=== PATIENT | female | born 1945 | race Hispanic/Latino ===

== ENCOUNTER 2018-04-22 14:54 | Emergency (ER) | payer MEDICARE ==
[2018-04-22 15:10] VITALS: RESP 18; TEMP 98; BMI 23.8
--- NOTE | 2018-04-22 15:21 | ED PDOC ---
HPI: Psych/Substance Abuse Time Seen by Provider: 04/22/18 15:05 Chief Complaint (Nursing): Lower Extremity Problem/Injury Chief Complaint (Provider): aggressive behavior History Per: Patient, EMS History/Exam Limitations: no limitations Onset/Duration Of Symptoms: Days (yesterday) Additional Complaint(s): Pt. is homeless and went to her daughter's house for Thanksgiving. Her daughter called [facility] crisis as pt. was aggressive. Pt. denies being aggressive and states no etoh or drugs. No pain, weakness, headaches, suicidal or homicidal ideation, weakness. Not taking any meds. Past Medical History Reviewed: Nursing Documentation, Vital Signs Vital Signs: Last Vital Signs Temp 98.0 F 04/22/18 15:05 Pulse 98 H 04/22/18 15:05 Resp 18 04/22/18 15:05 BP 172/92 H 04/22/18 15:05 Pulse Ox 99 04/22/18 15:05 - Medical History PMH: No Chronic Diseases - Surgical History Surgical History: No Surg Hx - Family History Family History: States: Unknown Family Hx - Allergies Allergies/Adverse Reactions: Allergies Allergy/AdvReac Type Severity Reaction Status Date / Time No Known Allergies Allergy Verified 04/22/18 15:05 Review of Systems ROS Statement: Except As Marked, All Systems Reviewed And Found Negative Physical Exam - Reviewed Nursing Documentation Reviewed: Yes Vital Signs Reviewed: Yes - Physical Exam Appears: Positive for: Non-toxic, No Acute Distress Head Exam: Positive for: ATRAUMATIC, NORMAL INSPECTION, NORMOCEPHALIC Skin: Positive for: Normal Color, Warm, DRY Eye Exam: Positive for: EOMI, Normal appearance, PERRL ENT: Positive for: Normal ENT Inspection Neck: Positive for: Normal, Painless ROM Cardiovascular/Chest: Positive for: Regular Rate, Rhythm Respiratory: Positive for: CNT, Normal Breath Sounds Gastrointestinal/Abdominal: Positive for: Normal Exam, Soft. Negative for: Tenderness Back: Positive for: Normal Inspection. Negative for: L CVA Tenderness, R CVA Tenderness Extremity: Positive for: Tenderness (mild), Pedal Edema (b/l with venouse stasis; on going for per pt. and got rx for antibiotics) Neurologic/Psych: Positive for: Alert, Oriented - ECG O2 Sat by Pulse Oximetry: 99 Pulse Ox Interpretation: Normal - Progress ED Course And Treament: 1624: Psych saw pt. Does not meet criteria for admit. Fu outpt. AAOx3. Disposition - Clinical Impression Clinical Impression: Chronic leg pain, Adjustment disorder - Patient ED Disposition Is Patient to be Admitted: No Counseled Patient/Family Regarding: Studies Performed, Diagnosis, Need For Followup - Disposition Referrals: [facility] [Outside] - 04/24/18 Disposition: Routine/Home Disposition Time: 16:27 Condition: STABLE Additional Instructions: FOLLOW UP WITH MEDICAL AND MEDICAL PHYSICS PROFESSOR FOR THE HOMELESS ([facility]) [address] [place] [address] Instructions: Adjustment Disorder, Chronic Pain (DC)
[2018-04-22 17:34] VITALS: BP 168/77; PULSE 99; O2SAT 100
== END 2018-04-22 17:46 | disposition home or self-care (01) ==
LOC: H.ER 14:54
DX: M79.606 Pain in leg, unspecified (principal); F43.20 Adjustment disorder, unspecified